=== PATIENT | male | born 1935 | race Caucasian/White ===

== ENCOUNTER 2016-09-30 13:57 | Emergency (ER) | payer MEDICARE, BC ==
[2016-09-30] MEDS ORDERED: ONDANSETRON HCL/PF 2 MG/ML VIAL ONE ×2 (14:15→15:38)
[2016-09-30] MEDS ORDERED: NORMAL SALINE 1,000 ML IV ONE (14:18)
[2016-09-30] MEDS ORDERED: ONDANSETRON HCL/PF 2 MG/ML VIAL IV ONE ×3 (14:18→15:50)
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
[2016-09-30 14:51] LABS: Hematocrit 41.2 % (42.0-52.0); Mean Corpuscular Hemoglobin 33.7 pg (27-31); Mean Platelet Volume 11.2 fl (6.0-9.5); Neutrophil % 69.7 % (42-75.0); Platelet Count 186 K/mm3 (150-450); Red Blood Count 4.16 M/mm3 (4.7-6.0); Red Cell Distribution Width 13.8 % (11.5-14.0); White Blood Count 10.1 K/mm3 (4.0-10.5)
[2016-09-30 15:11] LABS: Albumin * 3.7 gm/dl (3.4-5.0); BUN/Creatinine Ratio 21.1 (9.0-21.6); Bilirubin, Total 0.3 mg/dL (0.0-1.1); Ca. Corrected For Albumin 9.7 mg/dL (8.4-10.2); Calcium * 9.8 mg/dL (7.9-10.9); Carbon Dioxide 27.9 mmol/L (24-32.6); Potassium 3.9 mmol/L (3.4-4.6)
[2016-09-30] MEDS ORDERED: HYDROmorphone HCL 1 MG/ML DISP.SYRIN IV ONE (15:11)
[2016-09-30 15:12] LABS: Urine Bilirubin Negative (NEGATIVE); Urine Blood Negative /ul (NEGATIVE); Urine Ketone Negative (NEGATIVE); Urine Nitrite Negative (NEGATIVE); Urine Protein 100 mg/dL (NEGATIVE); Urine Urobilinogen Normal (NORMAL)
[2016-09-30] MEDS ORDERED: ceFAZolin SODIUM 2 GM in DEXTROSE 5 % IN WATER 100 ML IV ONE ×2 (15:13)
[2016-09-30 15:18] LABS: Urine Appearance Clear; Urine Bacteria None Seen; Urine Color Yellow; Urine RBC None Seen /hpf (0-5); Urine WBC None Seen /hpf (0-5)
[2016-09-30 15:19] LABS: Prothrombin Time (Patient) 24.4 Seconds (9.4-11.4)
[2016-09-30 15:21] LABS: INR 2.35 INR (0.90-1.10)
[2016-09-30] MEDS ORDERED: ceFAZolin SODIUM 2 GM in DEXTROSE 5 % IN WATER 50 ML IV ONE ×2 (15:30)
[2016-09-30] MEDS ORDERED: HYDROmorphone HCL 1 MG/ML DISP.SYRIN ONE (15:33)
[2016-09-30 15:49] VITALS: BP 186/83
== END 2016-09-30 16:23 | disposition short-term general hospital (02) ==
LOC: ER 13:57
DX: S02.40DA Maxillary fracture, left side, initial encounter for closed fracture (principal); S02.32XA Fracture of orbital floor, left side, initial encounter for closed fracture; W01.0XXA Fall on same level from slipping, tripping and stumbling without subsequent striking against object, initial encounter; Y93.9 Activity, unspecified; Y92.9 Unspecified place or not applicable; I48.91 Unspecified atrial fibrillation; Z79.01 Long term (current) use of anticoagulants; I10 Essential (primary) hypertension; E78.5 Hyperlipidemia, unspecified; M19.90 Unspecified osteoarthritis, unspecified site; E77.9 Disorder of glycoprotein metabolism, unspecified; K21.9 Gastro-esophageal reflux disease without esophagitis; Z85.828 Personal history of other malignant neoplasm of skin
CPT/HCPCS: 36415; 70450; 70486; 73110; 80053; 81001; 85025; 85610; 96365; 96375; 99285; J2405